=== PATIENT | male | born 1995 | race Caucasian/White ===

== ENCOUNTER → 2017-11-30 09:16 | Outpatient (CLI) | payer BC, SELFPAY ==
--- NOTE | 2017-11-30 09:19 | XR_ITS ---
XR finger RT min 2V HISTORY: Right fourth finger pain ITS.REASON: RT 4TH DIGIT FX ORDERING PHYSICIAN: Stanton Ferguson MD PATIENT AGE: 22 years COMPARISON: Right fourth finger 10/16/2017 FINDINGS: The comminuted fracture of the terminal tuft of the distal phalanx is again noted with no significant callus summation seen. The proximal middle phalanx appear intact. There are no soft tissue foreign bodies.. IMPRESSION: Stable probably crush type comminuted fracture terminal tuft distal phalanx
== END ==
PROVIDERS: PCP Family Medicine; Visit Provider Orthopaedic Surgery
DX: S62.609A Fracture of unspecified phalanx of unspecified finger, initial encounter for closed fracture (principal)
CPT/HCPCS: 73140

== ENCOUNTER → 2021-06-15 11:39 | Outpatient (CLI) | payer OTHER, SELFPAY | PROVIDERS: Visit Provider Nurse Practitioner | DX: U07.1 COVID-19 (principal) | CPT/HCPCS: C9803; U0003; U0005 ==

== ENCOUNTER 2025-02-27 14:34 | Outpatient (CLI) | payer BC, SELFPAY ==
--- NOTE | 2025-02-27 14:39 | XR_ITS ---
FINAL REPORT CLINICAL HISTORY: injury, c/o pain and swelling in the wrist FINDINGS: RIGHT FOREARM Two views were obtained. There are post ORIF changes to the proximal ulna and olecranon fracture. Healed fracture is noted. The joint is intact. IMPRESSION: Postsurgical changes. Reviewed, Interpreted and Dictated by Marycruz Siddiqui MD Transcribed by Tabby Morton Authenticated and [facility]
--- NOTE | 2025-02-27 14:39 | XR_ITS ---
FINAL REPORT CLINICAL HISTORY: pain & SWELLING in wrist and palm of thumb injury1 mth ago with a nail to the fat pad of the thumb. FINDINGS: RIGHT WRIST Three views were obtained. There is no fracture or dislocation. The joint spaces appear normal. No soft tissue abnormality is identified. IMPRESSION: No acute process. Reviewed, Interpreted and Dictated by Marycruz Siddiqui MD Transcribed by Tabby Morton Authenticated and [facility]
== END 2025-02-27 23:59 | disposition home or self-care (01) ==
LOC: RAD 14:35
PROVIDERS: PCP Family Medicine; Visit Provider Nurse Practitioner Family
DX: S69.91XA Unspecified injury of right wrist, hand and finger(s), initial encounter (principal); S52.021D Displaced fracture of olecranon process without intraarticular extension of right ulna, subsequent encounter for closed fracture with routine healing; M79.89 Other specified soft tissue disorders; W45.0XXA Nail entering through skin, initial encounter
CPT/HCPCS: 73090; 73100